=== PATIENT | female | born 1990 ===

== ENCOUNTER 2018-01-24 12:48 | Emergency (ER) | payer MEDICAID, OTHER ==
[2018-01-24 12:58] VITALS: BP 114/51; PULSE 69; RESP 18; TEMP 98.9; O2SAT 99
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
--- NOTE | 2018-01-24 14:08 | RAD ---
PROCEDURE: Radiographs of the Left Shoulder HISTORY: pain s.p fall COMPARISON: No prior. FINDINGS: BONES: Normal. No fracture. JOINTS: Normal. Glenohumeral and acromioclavicular joints preserved. No osteoarthritis. SOFT TISSUES: Normal. OTHER FINDINGS: None. IMPRESSION: Normal radiographs of the left shoulder.
== END 2018-01-24 14:09 | disposition home or self-care (01) ==
LOC: MERGE 12:48 → C.ER 12:48
DX: S40.012A Contusion of left shoulder, initial encounter (principal); S00.81XA Abrasion of other part of head, initial encounter; S02.5XXA Fracture of tooth (traumatic), initial encounter for closed fracture; V19.9XXA Pedal cyclist (driver) (passenger) injured in unspecified traffic accident, initial encounter; Y93.55 Activity, bike riding